=== PATIENT | male | born 1955 | race Caucasian/White ===

== ENCOUNTER 2016-10-15 00:38 | Emergency (ER) | payer OTHER ==
[~2016-10-15] VITALS: Ht 177.8 cm; Wt 114.6 kg
[~2016-10-15 00:38] MED LIST: COZA100T PO; FISH100020 PO; HYDR12.56 PO; MULT-65 PO; NIAC500T18 PO; REDCAP2 OR; VIT E PO
[2016-10-15 00:50] VITALS: BP 222/116; PULSE 93; RESP 22; TEMP 97.6; O2SAT 100
[2016-10-15] MEDS ORDERED: ASPIRIN 81 MG CHEW TAB PO ONE (01:00)
[2016-10-15] MEDS ORDERED: SODIUM CHLORIDE 0.9% FLUSH 10 ML FLUSH IVF PRN (01:00)
--- NOTE | 2016-10-15 01:03 | PD ---
HPI Chief Complaint: Chest Pain Time Seen by Provider: 00:54 Travel History International Travel<30 days: No Contact w/Intl Traveler<30days: No Traveled to known affect area: No History of Present Illness HPI The patient is a 60-year-old male with no known history of heart disease who noticed his blood pressure was 200/100 at about 9 PM this evening. He also noted shivering. He does not really have any chest pain. He felt like he needed a breathing rapidly. He does have a history of hypertension but denies any elevated cholesterol, diabetes and he does not smoke. He denies any focal neurologic change, he states he felt weak all over. He is physically very active. PFSH Past Medical History Hx Anticoagulant Therapy: Yes (asa 81mg) Cancer: No Cardiovascular Problems: Yes (htn, on meds) Diabetes: Yes (DIET) Diminished Hearing: No Endocrine: No Gastrointestinal Disorders: No Genitourinary: No Hepatitis: No Hiatal Hernia: No Hypertension: Yes Immune Disorder: No Musculoskeletal: No Neurologic: Yes ("CONCUSSION") Psychiatric: No Reproductive: No Respiratory: Yes (SLEEP APNEA WIH C PAP) Immunizations Current: Yes Thyroid Disease: No Past Surgical History Abdominal Surgery: No AICD: No Cardiac Surgery: No Ear Surgery: No Endocrine Surgery: No Eye Surgery: Yes (RIGHT CATARACT) Genitourinary Surgery: No Gynecologic Surgery: No Joint Replacement: No Oral Surgery: No Pacemaker: No Thoracic Surgery: No Other Surgery: Yes Social History Alcohol Use: Yes (1 DRINK A WEEK) Tobacco Use: No Substance Use: No Allergies-Medications (Allergen,Severity, Reaction): Coded Allergies: Oxycontin (Verified Allergy, Intermediate, Rash, 10/15/16) Reported Meds & Prescriptions Reported Meds & Active Scripts Active Hydrochlorothiazide 12.5 Mg Tab 1 Cap PO DAILY Reported [Vit E] 400 U PO DAILY Niacin (Niacinamide) 500 Mg Tab 500 Mg PO DAILY Fish Oil ([place]-3 Fatty Acids) 1,000 Mg Cap 1,000 Mg PO DAILY Red Yeast Rice (Red Yeast Rice Extract) Cap 1 OR DAILY Multi-Vitamin Daily (Multivitamins) Daily Tab 1 Tab PO DAILY Cozaar (Losartan Potassium) 100 Mg Tab 100 Mg PO DAILY Review of Systems Except as stated in HPI: all other systems reviewed are Neg Physical Exam Narrative GENERAL: The patient is anxious, alert, oriented 3 in no apparent distress. The blood pressure is 222/116, the patient is oxygen saturation 100, respirations 22 and 97.6 temperature. The patient appears to be anxious/ hyperventilating. SKIN: Focused skin assessment warm/dry. HEAD: Atraumatic. Normocephalic. EYES: Pupils equal and round. No scleral icterus. No injection or drainage. ENT: No nasal bleeding or discharge. Mucous membranes pink and moist. NECK: Trachea midline. No JVD. There is no meningismus present. CARDIOVASCULAR: Regular rate and rhythm. No murmur appreciated. RESPIRATORY: No accessory muscle use. Clear to auscultation. Breath sounds equal bilaterally. GASTROINTESTINAL: Abdomen soft, non-tender, nondistended. Hepatic and splenic margins not palpable. MUSCULOSKELETAL: No obvious deformities. No clubbing. No cyanosis. No edema. NEUROLOGICAL: Awake and alert. No obvious cranial nerve deficits. Motor grossly within normal limits. Normal speech. PSYCHIATRIC: The patient appears anxious; insight and judgment normal. Data Data Last Documented VS Vital Signs Date Time Temp Pulse Resp B/P Pulse Ox O2 Delivery O2 Flow Rate FiO2 10/15/16 02:15 72 17 144/79 97 Room Air 10/15/16 01:48 97.6 Orders Electrocardiogram (10/15/16 00:54) Ckmb (Isoenzyme) Profile (10/15/16 00:54) Complete Blood Count With Diff (10/15/16 00:54) Comprehensive Metabolic Panel (10/15/16 00:54) Magnesium (Mg) (10/15/16 00:54) Troponin I (10/15/16 00:54) Ecg Monitoring (10/15/16 00:54) Bilateral Bp Monitoring (10/15/16 00:54) Iv Access Insert/Monitor (10/15/16 00:54) Oximetry (10/15/16 00:54) Oxygen Administration (10/15/16 00:54) Aspirin Chew (Aspirin Chew) (10/15/16 01:00) Sodium Chloride 0.9% Flush (Ns Flush) (10/15/16 01:00) Nitroglycerin Sl (Nitrostat Sl) (10/15/16 01:00) Chest, Pa & Lat (10/15/16 00:54) Lorazepam Inj (Ativan Inj) (10/15/16 01:15) CKMB (10/15/16 01:05) CKMB% (10/15/16 01:05) Labs Laboratory Tests Test 10/15/16 01:05 White Blood Count 17.6 TH/MM3 Red Blood Count 5.07 MIL/MM3 Hemoglobin 15.3 GM/DL Hematocrit 46.3 % Mean Corpuscular Volume 91.3 FL Mean Corpuscular Hemoglobin 30.1 PG Mean Corpuscular Hemoglobin 32.9 % Concent Red Cell Distribution Width 12.3 % Platelet Count 247 TH/MM3 Mean Platelet Volume 8.9 FL Neutrophils (%) (Auto) 31.9 % Lymphocytes (%) (Auto) 59.5 % Monocytes (%) (Auto) 6.9 % Eosinophils (%) (Auto) 0.9 % Basophils (%) (Auto) 0.8 % Neutrophils # (Auto) 5.6 TH/MM3 Lymphocytes # (Auto) 10.5 TH/MM3 Monocytes # (Auto) 1.2 TH/MM3 Eosinophils # (Auto) 0.2 TH/MM3 Basophils # (Auto) 0.1 TH/MM3 CBC Comment AUTO DIFF Differential Total Cells 100 Counted Neutrophils % (Manual) 30 % Band Neutrophils % 1 % Lymphocytes % 61 % Monocytes % 8 % Neutrophils # (Manual) 5.5 TH/MM3 Differential Comment FINAL DIFF MANUAL Platelet Estimate NORMAL Platelet Morphology Comment NORMAL Red Cell Morphology Comment NORMAL Sodium Level 139 MEQ/L Potassium Level 3.0 MEQ/L Chloride Level 100 MEQ/L Carbon Dioxide Level 26.2 MEQ/L Anion Gap 13 MEQ/L Blood Urea Nitrogen 13 MG/DL Creatinine 0.85 MG/DL Estimat Glomerular Filtration 92 ML/MIN Rate Random Glucose 106 MG/DL Calcium Level 9.6 MG/DL Magnesium Level 2.2 MG/DL Total Bilirubin 0.6 MG/DL Aspartate Amino Transf 29 U/L (AST/SGOT) Alanine Aminotransferase 25 U/L (ALT/SGPT) Alkaline Phosphatase 66 U/L Total Creatine Kinase 305 U/L Creatine Kinase MB 3.3 NG/ML Troponin I LESS THAN 0.02 NG/ML Total Protein 7.8 GM/DL Albumin 4.2 GM/DL MDM Medical Decision Making Medical Screen Exam Complete: Yes Emergency Medical Condition: Yes Medical Record Reviewed: Yes Interpretation(s) His EKG shows sinus arrhythmia with a rate of [address] elevation or depression. The PA and lateral chest x-ray shows no acute disease. The basic metabolic profile is normal. The CBC shows an elevated white count at 17,600 with 60% lymphocytes. It is otherwise normal. The complete metabolic profile shows a potassium 3.0 but is otherwise normal. The cardiac enzymes are normal. Differential Diagnosis Chest wall pain, pleuritic pain, gastrointestinal pain, esophageal pain, acute cord syndromehighly unlikely, pneumonia, pneumothoraxhighly unlikely, electrolyte disorder, anxiety Narrative Course The patient does have a hypokalemia. There is no evidence for acute coronary syndrome by his symptoms or by his EKG or cardiac enzymes. His blood pressure came down to almost normal with Ativan. He does have apparent anxiety and this contributed to his blood pressure. Plan: The patient should follow-up with his primary care physician. He will be given a prescription for potassium. Diagnosis Primary Impression: Chest wall pain Additional Impression: Hypokalemia Scripts Potassium Chloride ER (K-Tab)20 Meq Tab20 Meq PO DAILY 10 Days Ref 0 Prov:Live Sanchez MD 10/15/16 Disposition: DISCHARGE HOME Condition: Stable Live Sanchez MD Oct 15, 2016 01:03
[2016-10-15] MEDS: NITROGLYCERIN 0.4 MG SL 25 TABS/BTL SL SCH ×3 (01:10→01:21)
[2016-10-15 01:12] LABS: AUTOMATED NEUTROPHIL # 5.6 TH/MM3 (1.8-7.7); BASOPHIL # 0.1 TH/MM3 (0-0.2); BASOPHIL % 0.8 % (0.0-2.0); EOSINOPHIL # 0.2 TH/MM3 (0-0.4); EOSINOPHIL % 0.9 % (0.0-4.0); HEMATOCRIT 46.3 % (39.0-51.0); LYMPH % 59.5 % (9.0-44.0); LYMPHOCYTE # 10.5 TH/MM3 (1.0-4.8); MEAN CELL VOLUME 91.3 FL (80.0-100.0); MEAN CORPUSCULAR HEMOGLOBIN 30.1 PG (27.0-34.0); MEAN CORPUSCULAR HGB CONC 32.9 % (32.0-36.0); MONO % 6.9 % (0.0-8.0); NEUT % 31.9 % (16.0-70.0); PLATELET COUNT 247 TH/MM3 (150-450); RED BLOOD COUNT 5.07 MIL/MM3 (4.50-5.90); RED CELL DISTRIBUTION WIDTH 12.3 % (11.6-17.2); WHITE BLOOD COUNT 17.6 TH/MM3 (4.0-11.0)
[2016-10-15 01:13] LABS: HEMO FLAGS AUTO DIFF
[2016-10-15] MEDS ORDERED: LORazepam 2 MG/ML VIAL IV PUSH ONE (01:15)
[2016-10-15 01:18] VITALS: BP 192/93; PULSE 86; RESP 20; O2SAT 98
[2016-10-15 01:20] VITALS: BP_SYST 167; BP_SYST 192; BP_DIAS 92; BP_DIAS 93
[2016-10-15 01:20] LABS: CHLORIDE 100 MEQ/L (98-107); SODIUM (NA) 139 MEQ/L (136-145)
[2016-10-15 01:24] LABS: ANION GAP 13 MEQ/L (5-15); BICARBONATE 26.2 MEQ/L (21.0-32.0); BLOOD UREA NITROGEN 13 MG/DL (7-18); MAGNESIUM 2.2 MG/DL (1.5-2.5)
[2016-10-15 01:27] LABS: ALT (GPT) 25 U/L (12-78); AST (GOT) 29 U/L (15-37); GLOMERULAR FILTRATION RATE 92 ML/MIN (>89)
[2016-10-15 01:28] LABS: BANDS 1 % (0-6); NEUTROPHIL # MANUAL DIFF 5.5 TH/MM3 (1.8-7.7); PLATELET ESTIMATE SMEAR NORMAL (NORMAL); PLATELET MORPHOLOGY NORMAL (NORMAL); POLYS (SEG NEUTROPHILS) 30 % (16-70); SCAN/DIFF FINAL DIFF MANUAL; WBC DIFF SAMPLE 100
[2016-10-15 01:29] LABS: TOTAL BILIRUBIN ADULT 0.6 MG/DL (0.2-1.0)
[2016-10-15 01:30] LABS: ALKALINE PHOSPHATASE 66 U/L (45-117); CREATINE KINASE 305 U/L (39-308)
[2016-10-15 01:42] LABS: CKMB 3.3 NG/ML (0.5-3.6)
[2016-10-15 01:48] VITALS: BP_SYST 176; BP_SYST 179; BP_DIAS 80; BP_DIAS 81; BP_DIAS 91; PULSE 76; RESP 20; TEMP 97.6; O2SAT 94
[2016-10-15 02:15] VITALS: BP 144/79; PULSE 72; RESP 17; O2SAT 97
--- NOTE | 2016-10-15 02:27 | RADHPO ---
EXAM DATE/TIME: 10/15/2016 01:37 [facility] COMPARISON: No previous studies available for comparison. INDICATIONS : Left sided chest pain starting today MEDICAL HISTORY : None. SURGICAL HISTORY : None. ENCOUNTER: Initial ACUITY: 1 day PAIN SCORE: 8/10 LOCATION: Left chest FINDINGS: PA and lateral views of the chest demonstrate the lungs to be symmetrically aerated without evidence of mass, infiltrate or effusion. The cardiomediastinal contours are unremarkable. Osseous structure s are intact. CONCLUSION: No acute disease. Deshaun Simpson MD on October 15, 2016 at 2:25 Board Certified Radiologist. This report was verified electronically.
[2016-10-15 03:35] VITALS: BP 155/79; PULSE 72; RESP 18; O2SAT 98
[2016-10-15] MEDS ORDERED: POTA1TAB4 PO (03:44)
[2016-10-15] MEDS ORDERED: POTASSIUM CHLORIDE 20 MEQ CONTROLLED RELEASE TAB PO ONE (03:45)
--- NOTE | 2016-10-15 15:09 | EKG ---
Date Performed: 10/15/2016 Time Performed: 00:39:24 PTAGE: 60 years EKG: Sinus arrhythmia. Inferior/lateral ST-T changes are nonspecific When compared to previous t racing, nonspecific ST segment Changes are now present. Borderline ECG PREVIOUS TRACING : 07/13/2015 18.13 DOCTOR: Moisés Gonsalez Interpretating Date/Time 10/15/2016 15:08:36
== END 2016-10-15 04:10 | disposition home or self-care (01) ==
LOC: PHED 00:38
DX: R07.89 Other chest pain (principal); E87.6 Hypokalemia
CPT/HCPCS: 71020; 80053; 82550; 82552; 83735; 84484; 85007; 85027; 93005; 96374; 99284; J2060